=== PATIENT | male | born 1960 | race Caucasian/White ===

== ENCOUNTER 2020-04-10 09:51 | Inpatient (IN) | payer OTHER ==
[~2020-04-10] VITALS: Ht 180.3 cm; Wt 127.0 kg
[2020-04-10] MEDS ORDERED: SODIUM CHLORIDE 0.9% 1000ML 1,000 ML IV STA (10:04)
[2020-04-10] MEDS ORDERED: KETOROLAC TROMETHAMINE 30 MG/ML VIAL IV ONE (10:15)
[2020-04-10] MEDS ORDERED: MORPHINE SULFATE 2 MG/ML SYR 1ML IV ONE (10:15)
[2020-04-10] MEDS ORDERED: ONDANSETRON HCL INJ 2MG/ML 2ML 2 MG/ML VIAL IV ONE (10:15)
[2020-04-10 10:30] LABS: BASOPHILS # (AUTO) 0.1 (0.0-0.1); BASOPHILS % 0.5 % (0.0-1.0); EOSINOPHILS # (AUTO) 0.2 (0.0-0.4); EOSINOPHILS % 1.8 % (0.0-6.0); HEMOGLOBIN 15.6 g/dL (14.0-18.0); LYMPHOCYTES # (AUTO) 1.4 (1.0-3.2); LYMPHOCYTES % 11.8 % (18.0-39.1); MEAN CORPUSCULAR HEMOGLOBIN 30.7 pg (28-32); MEAN CORPUSCULAR HGB CONC 34.7 g/dL (31-35); MEAN CORPUSCULAR VOLUME 88.6 fL (81-99); MONOCYTES # (AUTO) 1.1 (0.2-0.8); MONOCYTES % 8.9 % (4.4-11.3); NEUTROPHILS # (AUTO) 9.3 (2.1-6.9); NEUTROPHILS % 76.5 % (38.7-80.0); PLATELET COUNT 197 x10e3/uL (140-360); RED BLOOD COUNT 5.08 x10e6/uL (4.3-5.7); RED CELL DISTRIBUTION WIDTH 12.3 % (11.7-14.4)
[2020-04-10 10:40] LABS: INR 0.88; PROTHROMBIN TIME 12.4 seconds (11.9-14.5)
[2020-04-10 10:43] LABS: COLOR,URINE YELLOW (YELLOW)
[2020-04-10 10:44] LABS: CLARITY,URINE SL CLOUDY (CLEAR); LEUKOCYTE ESTERASE ,URINE NEGATIVE (NEGATIVE); NITRITE,URINE NEGATIVE (NEGATIVE); PROTEIN,URINE DIPSTICK TRACE (NEGATIVE)
[2020-04-10 10:45] LABS: BILIRUBIN,URINE NEGATIVE (NEGATIVE); KETONES,URINE NEGATIVE (NEGATIVE); URINE UROBILINOGEN 0.2 mg/dL (0.2 - 1)
[2020-04-10 10:52] LABS: ALBUMIN 4.2 g/dL (3.5-5.0); ALBUMIN/GLOBULIN RATIO 1.2 (0.8-2.0); ANION GAP 18.1 mmol/L (8-16); CALCIUM 9.8 mg/dL (8.4-10.2); CREATININE, SERUM 1.5 mg/dL (0.72-1.25); POTASSIUM 3.1 mmol/L (3.5-5.1)
[2020-04-10 10:59] LABS: BACTERIA,URINE RARE /HPF; EPITHELIAL CELLS,URINE FEW /LPF; RBC,URINE 21-50 /HPF (0-5); WBC,URINE (MAN) 21-50 /HPF (0-5)
[2020-04-10] MEDS ORDERED: LAMOTRIGINE ER200 MG PO (11:37)
[2020-04-10] MEDS ORDERED: TRAZODONE HCL50 MG PO (11:37)
[2020-04-10] MEDS ORDERED: LOSARTAN HCTZ PO (11:37)
[2020-04-10] MEDS ORDERED: AMLODIPINE BESY10 MG PO (11:37)
[2020-04-10] MEDS ORDERED: FLOMAX0.4 MG PO (11:37)
[2020-04-10] MEDS ORDERED: COREG CR80 MG PO (11:38)
--- NOTE | 2020-04-10 12:00 | Emergency Department Note ---
History of Present Illnes History of Present Illness Chief Complaint: Abdominal Complaints History of Present Illness This is a 59 year old male 3 DAYS "DEALING WITH PASSING KIDNEY STONES". C/O OF RIGHT LOWER QUADRANT PAIN THAT HAS RADIATED FROM BACK. INTERMITTENT PAIN AND BLEEDING WITH URINATION HX OF KIDNEY STONES. Historian: Patient Arrival Mode: Car Additional Treatment TAR AND AMMONIA PUMP OPERATOR: TYLENOL #3 @630 AM Grill Cook Required: No Onset (how long ago): day(s) (3, WORSE THIS AM IN RLQ) Location: RIGHT FLANK/ABD Quality: PAIN Radiation: Reports abdomen Severity: severe Onset quality: gradual Timing of current episode: intermittent Progression: waxing and waning Chronicity: recurrent Context: Denies recent illness Relieving factors: none Exacerbating factors: none Associated symptoms: Reports denies other symptoms Treatments prior to arrival: none Past Medical/Family History Physician Review I have reviewed the patient's past medical and family history. Any updates have been documented here. Past Medical History Recent Fever: No Clinical Suspicion of Infectio: No New/Unexplained Change in Ment: No Past Medical History: Hypertension, Kidney Stones, Anxiety, Depression, Hyperlipedemia Past Surgical History: None Social History Smoking Cessation: Never Smoker Counseling Performed: No Alcohol Use: None Any Illegal Drug Use: No Other Any Pre-Existing Lines (PICC,: No Review of Systems Review of Systems Constitutional: Reports no symptoms EENTM: Reports no symptoms Cardiovascular: Reports no symptoms Respiratory: Reports no symptoms Gastrointestinal: Reports as per HPI Genitourinary: Reports as per HPI Musculoskeletal: Reports no symptoms Integumentary: Reports no symptoms Neurological: Reports no symptoms Psychological: Reports no symptoms Endocrine: Reports no symptoms Hematological/Lymphatic: Reports no symptoms Physical Exam Related Data Allergies: Coded Allergies: No Known Allergies (Unverified , 04/10/20) Triage Vital Signs Vital Signs Date Time Temp Pulse Resp B/P (MAP) Pulse Ox O2 Delivery O2 Flow Rate FiO2 04/10/20 09:54 98.1 63 18 141/81 97 Room Air Vital signs reviewed: Yes Physical Exam CONSTITUTIONAL Constitutional: Present well-developed, Present well-nourished HENT HENT: Present normocephalic, Present atraumatic, Present oropharynx clear/moist, Present nose normal HENT L/R: Present left ext ear normal, Present right ext ear normal EYES Eyes: Reports PERRL, Reports conjunctivae normal NECK Neck: Present ROM normal PULMONARY Pulmonary: Present effort normal, Present breath sounds normal CARDIOVASCULAR Cardiovascular: Present regular rhythm, Present heart sounds normal, Present capillary refill normal, Present normal rate GASTROINTESTINAL Abdominal: Present soft, Present nontender, Present bowel sounds normal GENITOURINARY Genitourinary: Present exam deferred SKIN Skin: Present warm, Present dry MUSCULOSKELETAL Musculoskeletal: Present ROM normal NEUROLOGICAL Neurological: Present alert, Present oriented x 3, Present no gross motor or sensory deficits PSYCHOLOGICAL Psychological: Present mood/affect normal, Present judgement normal Results Laboratory Result Diagram: 04/10/20 1000 04/10/20 1000 Laboratory Laboratory Tests Test 04/10/20 10:00 White Blood Count 12.14 x10e3/uL (4.8-10.8) Red Blood Count 5.08 x10e6/uL (4.3-5.7) Hemoglobin 15.6 g/dL (14.0-18.0) Hematocrit 45.0 % (38.2-49.6) Mean Corpuscular Volume 88.6 fL (81-99) Mean Corpuscular Hemoglobin 30.7 pg (28-32) Mean Corpuscular Hemoglobin Concent 34.7 g/dL (31-35) Red Cell Distribution Width 12.3 % (11.7-14.4) Platelet Count 197 x10e3/uL (140-360) Neutrophils (%) (Auto) 76.5 % (38.7-80.0) Lymphocytes (%) (Auto) 11.8 % (18.0-39.1) Monocytes (%) (Auto) 8.9 % (4.4-11.3) Eosinophils (%) (Auto) 1.8 % (0.0-6.0) Basophils (%) (Auto) 0.5 % (0.0-1.0) Neutrophils # (Auto) 9.3 (2.1-6.9) Lymphocytes # (Auto) 1.4 (1.0-3.2) Monocytes # (Auto) 1.1 (0.2-0.8) Eosinophils # (Auto) 0.2 (0.0-0.4) Basophils # (Auto) 0.1 (0.0-0.1) Absolute Immature Granulocyte (auto 0.06 x10e3/uL (0-0.1) Prothrombin Time 12.4 seconds (11.9-14.5) Prothromb Time International Ratio 0.88 Activated Partial Thromboplast Time 28.0 seconds (23.8-35.5) Urine Color Yellow (YELLOW) Urine Clarity Sl cloudy (CLEAR) Urine pH 6 (5 - 7) Urine Specific [place] 1.025 (1.010-1.025) Urine Protein Trace (NEGATIVE) Urine Glucose (UA) Negative (NEGATIVE) Urine Ketones Negative (NEGATIVE) Urine Blood Large (NEGATIVE) Urine Nitrite Negative (NEGATIVE) Urine Bilirubin Negative (NEGATIVE) Urine Urobilinogen 0.2 mg/dL (0.2 - 1) Urine Leukocyte Esterase Negative (NEGATIVE) Urine RBC 21-50 /HPF (0-5) Urine WBC 21-50 /HPF (0-5) Urine Epithelial Cells Few /LPF (NONE) Urine Bacteria Rare /HPF (NONE) Sodium Level 136 mmol/L (136-145) Potassium Level 3.1 mmol/L (3.5-5.1) Chloride Level 99 mmol/L (98-107) Carbon Dioxide Level 22 mmol/L (22-29) Anion Gap 18.1 mmol/L (8-16) Blood Urea Nitrogen 19 mg/dL (7-26) Creatinine 1.50 mg/dL (0.72-1.25) Estimat Glomerular Filtration Rate 48 ML/MIN (60-) BUN/Creatinine Ratio 13 (6-25) Glucose Level 130 mg/dL (74-118) Calcium Level 9.8 mg/dL (8.4-10.2) Total Bilirubin 0.8 mg/dL (0.2-1.2) Aspartate Amino Transf (AST/SGOT) 20 IU/L (5-34) Alanine Aminotransferase (ALT/SGPT) 25 IU/L (0-55) Alkaline Phosphatase 65 IU/L (40-150) Total Protein 7.6 g/dL (6.5-8.1) Albumin 4.2 g/dL (3.5-5.0) Globulin 3.4 g/dL (2.3-3.5) Albumin/Globulin Ratio 1.2 (0.8-2.0) Lab results reviewed: Yes Imaging Imaging results reviewed: Yes Assessment & Plan Medical Decision Making MDM FLANK/ABD PAIN - CBC, CHEM, UA/CX, CT ABD/PELVIS - R/O URETEROLITHIASIS, UTI/PYELONEPHRITIS, APPENDICITIS, RENAL INSUFF Reassessment Reassessment OBSTRUCTING STONE 8MM MID RIGHT URETER AND 6MM AT RIGHT UVJ - ADMIT TO DR AYALA, CONSULT Assessment & Plan Final Impression: (1) Ureterolithiasis (2) Urinary tract obstruction by kidney stone (3) UTI (urinary tract infection) Depart Disposition: ADMITTED Last Vital Signs Date Time Temp Pulse Resp B/P (MAP) Pulse Ox O2 Delivery O2 Flow Rate FiO2 04/10/20 10:30 61 18 125/75 97 Room Air 04/10/20 09:54 98.1 Home Meds Reported Medications Carvedilol Phosphate (COREG CR) 80 Mg Cpmp.24hr, 80 MG PO DAILY 04/10/20 Amlodipine Besylate (AMLODIPINE BESYLATE) 10 Mg Tablet, 10 MG PO DAILY, #30 TAB 04/10/20 Tamsulosin Hcl* (FLOMAX*) 0.4 Mg Cap, 0.4 MG PO DAILY, #30 CAP 04/10/20 Lamotrigine (Lamotrigine ER) 200 Mg Tab.er.24, 200 MG PO DAILY 04/10/20 [losartan hctz] No Conflict Check, 100 MG PO DAILY 04/10/20 Trazodone Hcl (TRAZODONE HCL) 50 Mg Tablet, 100 MG PO DAILY, #30 TAB 04/10/20 Medications in the ED Morphine Sulfate 4 mg ONCE ONCE IV Last administered on 04/10/20at 10:24; Admin Dose 4 MG; Start 04/10/20 at 10:15; Stop 04/10/20 at 10:16; Status DC Ondansetron HCl 4 mg ONCE ONCE IV Last administered on 04/10/20at 10:24; Admin Dose 4 MG; Start 04/10/20 at 10:15; Stop 04/10/20 at 10:16; Status DC Ketorolac Tromethamine 30 mg ONCE ONCE IV Last administered on 04/10/20at 10:17; Admin Dose 30 MG; Start 04/10/20 at 10:15; Stop 04/10/20 at 10:16; Status DC Sodium Chloride 1,000 ml @ 0 mls/hr Q0M STAT IV Last administered on 04/10/20at 10:17; Admin Dose 1,000 MLS/HR; Start 04/10/20 at 10:04; Stop 04/10/20 at 10:07; Status DC ALONSO FARIA MD Apr 10, 2020 12:00
--- NOTE | 2020-04-10 12:36 | Diagnostic Imaging Report ---
EXAM: CT Abdomen and Pelvis WITHOUT contrast INDICATION: Right lower quadrant abdominal pain. COMPARISON: TECHNIQUE: Abdomen and pelvis were scanned utilizing a multidetector helical scanner from the lung base to the pubic symphysis without administration of IV contrast. Absence of intravenous contrast decreases sensitivity for detection of focal lesions and vascular pathology. Coronal and sagittal reformations were obtained. Routine protocol was performed. IV CONTRAST: None ORAL CONTRAST: None COMPLICATIONS: None RADIATION DOSE: Total DLP: 980.81 mGy*cm Estimated effective dose: (DLP x 0.015 x size factor) mSv CTDIvol has been reviewed. It is below the limits set by the Radiation Protocol Committee (RPC). Dose modulation, iterative reconstruction, and/or weight based adjustment of the mA/kV was utilized to reduce the radiation dose to as low as reasonably achievable. FINDINGS: LINES and TUBES: None. LOWER THORAX: There is bibasilar atelectasis. The base of the heart demonstrates atherosclerotic calcification of coronary vessels and left atrial enlargement measuring up to 5.6 cm. No pericardial effusion. HEPATOBILIARY: No focal hepatic lesions. No biliary ductal dilation. GALLBLADDER: No radio-opaque stones or sludge. No wall thickening. SPLEEN: No splenomegaly. PANCREAS: No focal masses or ductal dilatation. ADRENALS: There is nodular thickening of the bilateral adrenal glands. KIDNEYS/URETERS: There is a 8 mm stone in the mid right ureter with proximal hydroureteronephrosis. There is an exophytic cyst and nonobstructive 6 mm stone in the inferior pole of the right kidney. There are multiple nonobstructing stones in the left kidney the largest measuring up to 1.5 cm in the inferior pole. No evidence of left hydroureteronephrosis. GI TRACT: There are scattered colonic diverticulosis or evidence of active inflammation. No abnormal distention, wall thickening, or evidence of bowel obstruction. Appendix is normal. PELVIC ORGANS/BLADDER: There is a 6 mm stone in the lumen of the urinary bladder at the distal ureterovesical junction. The urinary bladder is decompressed limiting optimal assessment. The prostate gland is enlarged measuring approximately 6.4 x 6.0 cm. LYMPH NODES: No lymphadenopathy. VESSELS: The abdominal aorta and its major abdomen and pelvic branches have normal caliber with mild atherosclerotic calcification. PERITONEUM / RETROPERITONEUM: There is an indeterminate well-circumscribed mass which extends inferiorly from the monae hepatis, aborting the head of the pancreas and second portion of the duodenum. It measures approximately 5.5 x 6.4 x 8.1 cm (AP x transverse x craniocaudal) and causes mass effect on the adjacent structures including the right renal vessels and inferior vena cava. BONES: Multilevel degenerative changes of the spine with no suspicious osteolytic or osteoblastic lesions. SOFT TISSUES: Unremarkable. IMPRESSION: 1. An 8 mm obstructive stone in the mid right ureter with proximal hydroureteronephrosis. Nonobstructive 6 mm stone in the inferior pole of the right kidney. 2. Multiple nonobstructing stones in the left kidney, the largest measuring up to 1.5 cm in the inferior pole. 3. A 6mm stone in the lumen of the urinary bladder at the distal right ureterovesical junction, likely passing stone. 4. Indeterminate well-circumscribed mass which extends inferiorly from the monae hepatis, bordered by the head of the pancreas, second portion of the duodenum, renal vessels and inferior vena cava. It is difficult to determine where this mass originates from due to lack of contrast. Recommend repeat CT of the abdomen and pelvis with intravenous and oral contrast. The oral contrast should been early phase to adequately opacify the proximal duodenum. 5. Scattered colonic diverticulosis without evidence of active inflammation. 6. Left atrial enlargement with atherosclerotic calcification of the coronary vessels. 7. Nodular thickening of the bilateral adrenal glands which can be seen with adrenal hyperplasia. Signed by: Barrera Abreu MD on 04/10/2020 12:33 PM
[2020-04-10] MEDS ORDERED: ONDANSETRON HCL INJ 2MG/ML 2ML 2 MG/ML VIAL IV PRN (13:00)
[2020-04-10] MEDS: CEFTRIAXONE SOD 1 GM/NS 50 ML 50 ML IV SCH (13:07)
[2020-04-10] MEDS: SODIUM CHLORIDE 0.9% 1000ML 1,000 ML IV SCH (13:07)
--- OUTSIDE RECORDS SUMMARY | 2020-04-10 13:13 | XMS REPORT | Continuity of Care Document ---
Author Author [facility] t Organization [facility] Address [address] [place] [address] [address]. [address] [place] [address] Phone Unavailable Care Team Providers Care Embedded Systems Engineer Name Role Phone Abilio FARIA Attphys Unavailable Problems This patient has no known problems. Allergies, Adverse Reactions, Alerts This patient has no known allergies or adverse reactions. Medications This patient has no known medications. Procedures This patient has no known procedures. Results Test Description Test Time Test Comments Results Result Comments Source CT ABDOMEN/PELVIS WO 2020-04-10 11:45:00 [facility] [address] [place], [place] [address] Patient Name: ARCADIO ROYAL MR #: [id number] : 1960 Age/Sex: 59/M Req #: [id number] Adm Physician: Ordered by: ALONSO FARIA MD Report #: [id number] Location: ER Room/Bed: Procedure: [id number] CT/CT ABDOMEN/PELVIS WO Exam Date: 04/10/20 Exam Time: 1030 REPORT STATUS: Signed EXAM: CT Abdomen and Pelvis WITHOUT contrast INDICATION: Right lower quadrant abdominal pain. COMPARISON: TECHNIQUE: Abdomen and pelvis were scanned utilizing a multidetector helical scanner from the lung base to the pubic symphysis without administration of IV contrast. Absence of intravenous contrast decreases sensitivity for detection of focal lesions and vascular pathology. Coronal and sagittal reformations were obtained. Routine protocol was performed. IV CONTRAST: None ORAL CONTRAST: None COMPLICATIONS: None RADIATION DOSE: Total DLP: 980.81 mGy*cm Estimated effective dose: (DLP x 0.015 x size factor) mSv CTDIvol has been reviewed. It is below the limits set by the Radiation Protocol Committee (RPC). Dose modulation, iterative reconstruction, and/or weight based adjustment of the mA/kV was utilized to reduce the radiation dose to as low as reasonably achievable. FINDINGS: LINES and TUBES: None. LOWER THORAX: There is bibasilar atelectasis. The base of the heart demonstrates atherosclerotic calcification of coronary vessels and left atrial enlargement measuring up to 5.6 cm. No pericardial effusion. HEPATOBILIARY: No focal hepatic lesions. No biliary ductal dilation. GALLBLADDER: No radio-opaque stones or sludge. No wall thickening. SPLEEN: No splenomegaly. PANCREAS: No focal masses or ductal dilatation. ADRENALS: There is nodular thickening of the bilateral adrenal glands. KIDNEYS/URETERS: There is a 8 mm stone in the mid right ureter with proximal hydroureteronephrosis. There is an exophytic cyst and n onobstructive 6 mm stone in the inferior pole of the right kidney. There are multiple nonobstructing stones in the left kidney the largest measuring up to 1.5 cm in the inferior pole. No evidence of left hydroureteronephrosis. GI TRACT: There are scattered colonic diverticulosis or evidence of active inflammation. No abnormal distention, wall thickening, or evidence of bowel obstruction. Appendix is normal. PELVIC ORGANS/BLADDER: There is a 6 mm stone in the lumen of the urinary bladder at the distal ureterovesical junction. The urinary bladder is decompressed limiting optimal assessment. The prostate gland is enlarged measuring approximately 6.4 x 6.0 cm. LYMPH NODES: No lymphadenopathy. VESSELS: The abdominal aorta and its major abdomen and pelvic branches have normal caliber with mild atherosclerotic calcification. PERITONEUM / RETROPERITONEUM: There is an indeterminate well-circumscribed mass which extends inferiorly from the monae hepatis, aborting the head of the pancreas and second portion of the duodenum. It measures approximately 5.5 x 6.4 x 8.1 cm (AP x transverse x craniocaudal) and causes mass effect on the adjacent structures including the right renal vessels and inferior vena cava. BONES: Multilevel degenerative changes of the spine with no suspicious osteolytic or osteoblastic lesions. SOFT TISSUES: Unremarkable. IMPRESSION: 1. An 8 mm obstructive stone in the mid right ureter with proximal hydroureteronephrosis. Nonobstructive 6 mm stone in the inferior pole of the right kidney. 2. Multiple nonobstructing stones in the left kidney, the largest measuring up to 1.5 cm in the inferior pole. 3. A 6mm stone in the lumen of the urinary bladder at the distal right ureterovesical junction, likely passing stone. 4. Indeterminate well-circumscribed mass which extends inferiorly from the monae hepatis, bordered by the head of the pancreas, second portion of the duo denum, renal vessels and inferior vena cava. It is difficult to determine where this mass originates from due to lack of contrast. Recommend repeat CT of the abdomen and pelvis with intravenous and oral contrast. The oral contrast should been early phase to adequately opacify the proximal duodenum. 5. Scattered colonic diverticulosis without evidence of active inflammation. 6. Left atrial enlargement with atherosclerotic calcification of the coronary vessels. 7. Nodular thickening of the bilateral adrenal glands which can be seen with adrenal hyperplasia. Signed by: Bijal Pretty MD on 04/10/2020 12:33 PM Dictated By: BIJAL PRETTY MD [id number] Transcribed By: YONI on 04/10/20 1233 COPY TO: ALONSO FARIA MD
[2020-04-10] MEDS ORDERED: POTASSIUM CHLORIDE 20 MEQ TAB CR PO STA (13:34)
[2020-04-10] MEDS: MORPHINE SULFATE 2 MG/ML SYR 1ML IV PRN ×2 (13:46→18:25)
--- NOTE | 2020-04-10 13:46 | NUR ---
DR. AYALA [employer] AT BEDSIDE EVALUATING PATIENT
--- NOTE | 2020-04-10 14:20 | NUR ---
Patient arrived to the floor from the ER. He is awake alert and oriented x 3. He was oriented to the room, he denies needing anything at this time, call light in reach
[2020-04-10 14:22] VITALS: BP 138/79
[2020-04-10 15:30] VITALS: BP 138/79
--- NOTE | 2020-04-10 16:16 | Consultation ---
DATE OF CONSULTATION: 04/10/2020 Urologic Consultation Consultation is called by Dr. Elvin Ocampo in the emergency room. CHIEF COMPLAINT AND REASON FOR CONSULTATION: Kidney stones. HISTORY OF PRESENT ILLNESS: Mr. Valero is a very pleasant 59-year-old male, self employee, who has been passing kidney stones since the age of 21. He now presents with acute sharp severe right-sided flank pain. Denied dysuria. Denied gross hematuria. PAST MEDICAL HISTORY: Hypertension, kidney stones, anxiety, depression, hyperlipidemia, and obesity. MEDICATIONS: Please see MAR. ALLERGIES: NKDA. SOCIAL HISTORY: Denied smoking or drinking. FAMILY HISTORY: Denied urologic stones or malignancies. REVIEW OF SYSTEMS: Noncontributory other than problems mentioned above for 12-organ systems. PHYSICAL EXAMINATION: GENERAL: Middle-aged male, in no acute distress. VITAL SIGNS: Currently temperature 97.8, pulse 65, respirations 20, and blood pressure 138/79. HEENT: Sclerae anicteric. NECK: Supple. BACK: Without costovertebral angle tenderness currently. ABDOMEN: Soft. It is obese. It is nontender. It is nondistended. There is no palpable mass, no palpable hernias, no palpable adenopathy. : Normal male external genitalia. EXTREMITIES: No edema. NEURO: Moves all 4 extremities. PSYCH: Alert and mood appropriate. SKIN: Intact. Normal color. PERTINENT LABORATORY DATA: Hemoglobin 15, hematocrit 45, platelet count 197,000, and white blood cell count 12,000. Sodium 136, potassium 3.1, chloride 99, bicarb 32, BUN 19, creatinine 1.5, and glucose 130. Urinalysis 21 to 50 whites, 21 to 50 reds, negative nitrites, trace protein. A CT scan revealing per the impression 8 mm right mid ureteral obstructive stone, right hydronephrosis, 6 mm right lower pole renal stone, 6 mm right UVJ stone, multiple stones in the left kidney, largest 1.5 cm. Indeterminate well-circumscribed mass in the pancreas. Nodular thickening of bilateral adrenal glands. IMPRESSION: 1. Ureteral calculi. 2. Renal calculi. 3. Hydronephrosis. 4. Microscopic hematuria. 5. Urinary tract infection. 6. Obesity. 7. Hypertension. 8. Bilateral adrenal thickening consistent with adrenal hyperplasia. 9. Pancreatic mass. 10. Acute renal failure. PLAN: Aggressively hydrated the patient, has been begun on broad-spectrum antibiotics. We would employ a brief trial of passage. Should this fail or white count normalize, we will consider stenting and ureteroscopy depending upon how the stones removed. This was obtained per the patient about the pancreatic mass seen on CAT scan. We will follow. We will defer to the primary service. Defer kirsten and lytes to the primary service. Thank you for allowing me to participate in the care of your patient. We will be happy to follow along with you. Tre Lorenz MD ES/MODL /[id number] cc: MD Fidel Triplett MD
[2020-04-10 17:21] VITALS: BP 131/73
[2020-04-10] MEDS ORDERED: ACETAMINOPHEN 325 MG TAB PO PRN (19:45)
[2020-04-10 21:00] VITALS: BP 131/73
[2020-04-10 21:10] VITALS: BP 132/64
--- NOTE | 2020-04-10 21:21 | NUR ---
Blood specimen sent to lab for BMP analysis
[2020-04-10] MEDS: TAMSULOSIN HCL 0.4 MG CAP PO SCH (21:35)
[2020-04-10] MEDS: ATORVASTATIN 20 MG TAB PO SCH (21:35)
[2020-04-10 21:46] LABS: ANION GAP 15.9 mmol/L (8-16); CALCIUM 9.2 mg/dL (8.4-10.2); CREATININE, SERUM 1.56 mg/dL (0.72-1.25)
[2020-04-10 22:01] LABS: POTASSIUM 2.9 mmol/L (3.5-5.1)
--- NOTE | 2020-04-10 22:20 | NUR ---
Dr. Barrios notified of low potassium level of 2.9. New order received for Potassium 60 MeQ PO x 1
[2020-04-10] MEDS ORDERED: POTASSIUM CHLORIDE 20 MEQ TAB CR PO ONE (23:00)
[2020-04-10] MEDS: TRAZODONE HCL 50 MG TAB PO SCH (23:08)
--- NOTE | 2020-04-10 23:08 | History and Physical ---
PRIMARY CARE PHYSICIAN: Dr. Reyna Beck at [facility] CHIEF COMPLAINT: Right flank pain radiating to the right pelvic area. HISTORY OF PRESENT ILLNESS: This is a 59-year-old male with past medical history of hypertension, high cholesterol, and nonobstructive kidney stones in the past, who presented to the ER with complaints of right flank pain radiating to the right pelvic area. He reports the pain started 3 or 4 days ago on and off, but continue to worsen. He denies any dysuria, hematuria, or stones or particles in the urine. He denies any fever, chills, chest pain, or shortness of breath. He reports severe pain causing him to have nausea and vomiting associated with it. He reports has had kidney stones in the past, but has not had any intervention done in the past. The PCP had done some imaging in the beginning of the year, which showed some stones and was planning for further intervention, but due to the pandemic was not able to follow through. PAST MEDICAL HISTORY: 1. Hypertension. 2. High cholesterol. 3. BPH. 4. Mood disorder. PAST SURGICAL HISTORY: Reports eye reconstruction surgery to the left side due to an accident. FAMILY MEDICAL HISTORY: He reports mother of cancer and father has heart disease. SOCIAL HISTORY: He denies any tobacco, alcohol, or illicit drug use, currently employed. ALLERGIES: NO KNOWN DRUG ALLERGIES. REVIEW OF SYSTEMS: Twelve-system reviewed and negative except as reported in HPI. PHYSICAL EXAMINATION: VITAL SIGNS: Temperature 98.3, pulse is 78, respirations 18, blood pressure 120/77, and pulse ox 98% on room air. GENERAL: In no acute distress. HEENT: Normocephalic, atraumatic. NECK: Supple. LUNGS: Clear to auscultation. CARDIOVASCULAR: Regular rate and rhythm. GI: Soft and nontender. NEUROLOGIC: Alert, awake, and oriented x3. MUSCULOSKELETAL: Moves all extremities. SKIN: Dry. PSYCH: He is calm. : Flank pain, right radiating to the right side pelvic pain. LABORATORY DATA: WBCs 12.14, hemoglobin 15.6, hematocrit 45.0, and platelets 197. Sodium 136, potassium 3.11, BUN 19, creatinine 1.50, and estimated GFR is 48. PT 12.4, INR 0.88, and APTT 28.0. Urine, slightly cloudy with trace protein, negative leukocyte esterase with 21-50 K wbc's and rare bacteria. COVID PCR is pending. Urine culture is pending. IMAGING DATA: CT of the abdomen and pelvis shows an 8 mm obstructive stone in the mid right ureter and proximal hydroureteronephrosis with multiple nonobstructing stones in the left kidney and as well as the right inferior pole; a 6 mm in the lumen of the urinary bladder, likely passing stone; indeterminate, well-circumscribed mass which extends inferiorly from the monae hepatis bordered by the head of the pancreas, second portion of the duodenum, renal vessels, and inferior vena cava and recommended repeat CT of the abdomen and pelvis with IV contrast. Nodular thickening of the bilateral adrenal glands also seen. IMPRESSION: 1. Obstructive kidney stone with hydroureteronephrosis. Started on Rocephin empirically, urine culture pending, pain management as needed, and Urology consulted. 2. Acute kidney injury. He denies history of kidney disease. Creatinine is 1.5. We will continue with IV fluids and repeat labs in a.m. 3. Hypertension. We will resume Norvasc and losartan. 4. Hypokalemia, replaced. 5. Questionable mass on CT. We will repeat CT of the abdomen and pelvis with IV contrast for further evaluation. 6. High cholesterol. We will resume statin. 7. Benign prostatic hypertrophy. We will resume Flomax. 8. GI and DVT prophylaxis. We will hold chemical anticoagulation due to possible urology workup. Dictated by ADAM Lorenzo Fidel Barrios MD MY/MODL /[id number] Seen and examined. Agree with the findings and plan documented by ADAM Jenkins. DEXTER
[2020-04-11] VITALS (7 sets, daily range): BP systolic 104–139; BP diastolic 67–99
[2020-04-11] MEDS: CEFTRIAXONE SOD 1 GM/NS 50 ML 50 ML IV SCH ×2 (00:34→14:23)
[2020-04-11] MEDS: SODIUM CHLORIDE 0.9% 1000ML 1,000 ML IV SCH ×2 (02:20→14:24)
--- NOTE | 2020-04-11 07:00 | NUR ---
Patient resting comfortably. AAO x 3. No acute distress noted. Shift report given to oncoming nurse regarding patient's status.
[2020-04-11 07:57] LABS: BASOPHILS # (AUTO) 0.1 (0.0-0.1); BASOPHILS % 0.6 % (0.0-1.0); EOSINOPHILS # (AUTO) 0.3 (0.0-0.4); EOSINOPHILS % 3.1 % (0.0-6.0); HEMATOCRIT 39.4 % (38.2-49.6); HEMOGLOBIN 13.3 g/dL (14.0-18.0); LYMPHOCYTES # (AUTO) 1.8 (1.0-3.2); LYMPHOCYTES % 21.4 % (18.0-39.1); MEAN CORPUSCULAR HEMOGLOBIN 29.8 pg (28-32); MEAN CORPUSCULAR HGB CONC 33.8 g/dL (31-35); MEAN CORPUSCULAR VOLUME 88.1 fL (81-99); MONOCYTES % 11.5 % (4.4-11.3); NEUTROPHILS # (AUTO) 5.2 (2.1-6.9); NEUTROPHILS % 62.8 % (38.7-80.0); PLATELET COUNT 175 x10e3/uL (140-360); RED BLOOD COUNT 4.47 x10e6/uL (4.3-5.7); RED CELL DISTRIBUTION WIDTH 12.4 % (11.7-14.4)
[2020-04-11 08:19] LABS: ALANINE AMINOTRANSFERASE 19 IU/L (0-55); ALBUMIN 3.5 g/dL (3.5-5.0); ALBUMIN/GLOBULIN RATIO 1.2 (0.8-2.0); ALKALINE PHOSPHATASE 57 IU/L (40-150); BLOOD UREA NITROGEN 15 mg/dL (7-26); BUN/CREATININE RATIO 13 (6-25); CARBON DIOXIDE 23 mmol/L (22-29); CHLORIDE 105 mmol/L (98-107); CREATININE, SERUM 1.17 mg/dL (0.72-1.25); EST GLOMERULAR FILTRATION RATE > 60 ML/MIN (60-); GLUCOSE 107 mg/dL (74-118); SODIUM 139 mmol/L (136-145)
[2020-04-11] MEDS ORDERED: TAMSULOSIN HCL 0.4 MG CAP PO SCH (09:00)
[2020-04-11] MEDS ORDERED: LAMOTRIGINE 200 MG PO SCH (09:00)
--- NOTE | 2020-04-11 09:16 | Diagnostic Imaging Report ---
EXAM: Abdomen Radiograph 1 View(s) INDICATION: Kidney stone. COMPARISON: CT of the abdomen/pelvis on 04/10/2020. FINDINGS: Redemonstration of multiple stones in the left kidney, the largest measuring up to 1.5 cm. Smaller stones also seen in the right kidney, the largest inferior pole measuring up to 5 mm. Normal bowel gas pattern. No evidence of pneumoperitoneum. The bones are within normal limits for age. The imaged lower lungs are clear. IMPRESSION: 1. Multiple bilateral renal stones, the largest measuring up to 1.5 cm in the left kidney. These are better characterized on comparison CT of the abdomen/pelvis. 2. Nonobstructive bowel gas pattern. Signed by: Barrera Abreu MD on 04/11/2020 9:13 AM
[2020-04-11] MEDS: AMLODIPINE BESYLATE 10 MG TAB PO SCH (09:46)
[2020-04-11] MEDS ORDERED: DIATRIZOATE MEGL/DIATRIZOA SOD 30 ML BTL PO ONE (11:47)
[2020-04-11] MEDS ORDERED: POTASSIUM CHLORIDE 10MEQ EA PO ONE (13:30)
--- NOTE | 2020-04-11 16:45 | Diagnostic Imaging Report ---
EXAM: CT Abdomen and Pelvis WITH contrast INDICATION: Abdominal pain concerning for mass within the liver, pancreas or duodenum. COMPARISON: CT of the abdomen and pelvis on 04/10/2020. TECHNIQUE: Abdomen and pelvis were scanned utilizing a multidetector helical scanner from the lung base to the pubic symphysis after administration of IV contrast. Coronal and sagittal reformations were obtained. Routine protocol was performed. Scan was performed when during portal venous phase. IV CONTRAST: 100 mL of Isovue 370 ORAL CONTRAST: None COMPLICATIONS: None RADIATION DOSE: Total DLP: 989.68 mGy*cm Estimated effective dose: (DLP x 0.015 x size factor) mSv CTDIvol has been reviewed. It is below the limits set by the Radiation Protocol Committee (RPC). Dose modulation, iterative reconstruction, and/or weight based adjustment of the mA/kV was utilized to reduce the radiation dose to as low as reasonably achievable. FINDINGS: LINES and TUBES: None. LOWER THORAX: There is bibasilar atelectasis. The base of the heart demonstrates atherosclerotic calcification of coronary vessels and left atrial enlargement measuring up to 5.6 cm. No pericardial effusion. HEPATOBILIARY: Diffusely hypodense, compatible with hepatic steatosis. No focal hepatic lesions. No biliary ductal dilation. GALLBLADDER: No radio-opaque stones or sludge. No wall thickening. SPLEEN: No splenomegaly. PANCREAS: No focal masses or ductal dilatation. ADRENALS: Redemonstration of nodular thickening of the bilateral adrenal glands. KIDNEYS/URETERS: Redemonstration of a 8 mm stone in the mid right ureter with proximal hydroureteronephrosis, unchanged. Exophytic cyst and nonobstructive 6 mm stone in the inferior pole of the right kidney is again seen. There is a new 7 mm stone in the left ureterovesicular junction. No significant left hydronephrosis. Redemonstration of multiple nonobstructing stones in the left kidney the largest measuring up to 1.5 cm in the inferior pole. GI TRACT: There are scattered colonic diverticulosis or evidence of active inflammation. No abnormal distention, wall thickening, or evidence of bowel obstruction. Appendix is normal. PELVIC ORGANS/BLADDER: Previously described 6 mm stone in the right ureterovesicular junction is no longer visualized. Normal urinary bladder wall. The prostate gland is enlarged measuring approximately 6.4 x 6.0 cm. LYMPH NODES: No lymphadenopathy. VESSELS: The abdominal aorta and its major abdomen and pelvic branches have normal enhancement and caliber with mild atherosclerotic calcification. PERITONEUM / RETROPERITONEUM: Redemonstration of indeterminate well-circumscribed 5.5 x 6.4 x 8.1 cm, enhancing mass which extends inferiorly from the monae hepatis, abutting the head of the pancreas , second portion of the duodenum and inferior vena cava. It is a solitary mass and does not originate from any of the adjacent structures. BONES: Multilevel degenerative changes of the spine with no suspicious osteolytic or osteoblastic lesions. SOFT TISSUES: Unremarkable. IMPRESSION: 1. Well-circumscribed 5.5 x 6.4 x 8.1 cm, enhancing mass which abuts the head of the pancreas, second portion of the duodenum and inferior vena cava. It is a solitary mass and does not originate from any of the adjacent structures. Differential diagnosis includes an enlarged lymph node or soft tissue sarcoma. However, patient will require nonemergent complete metastatic workup and probable direct tissue sampling for more definitive diagnosis. 2. New 7 mm stone in the left ureterovesicular junction. No significant left hydroureteronephrosis. It is difficult to determine whether this is the same stone previously seen in the right ureterovesicular junction or a new passing stone. 3. No interval change in 8 mm obstructive stone in the mid right ureter with proximal hydroureteronephrosis. Nonobstructive 6 mm stone in the inferior pole of the right kidney. 4. Multiple nonobstructing stones in the left kidney, the largest measuring up to 1.5 cm in the inferior pole. 5. Scattered colonic diverticulosis without evidence of active inflammation. 6. Left atrial enlargement with atherosclerotic calcification of the coronary vessels. 7. Nodular thickening of the bilateral adrenal glands which can be seen with adrenal hyperplasia. Signed by: Barrera Abreu MD on 04/11/2020 4:42 PM
--- NOTE | 2020-04-11 17:55 | NUR ---
CT abdomen/pelvis results were called to Dr. Lorenz. No new orders at this time.
[2020-04-11] MEDS ORDERED: SODIUM CHLORIDE 0.9% 50ML 50 ML ONE (19:20)
[2020-04-11] MEDS ORDERED: IOPAMIDOL 370 MG/ML 200 ML INFUS..BTL INJ ONE (19:20)
--- NOTE | 2020-04-11 19:28 | NUR ---
Patient received sitting up in bed. AAO x 4. Patient has no complaints of pain. Respirations even and non-labored. Safety measures in place. Patient instructed to call for assistance when needed. Call light within reach.
--- NOTE | 2020-04-11 21:00 | Progress Note ---
DATE: 04/11/2020 CHIEF COMPLAINT: Right flank pain radiating to right pelvis. SUBJECTIVE: The patient reports has some soreness in the right lower quadrant area, but has not required any pain medication since yesterday. He denies any fever, chills, nausea, or vomiting. No visible passing of stones or hematuria. OBJECTIVE: VITAL SIGNS: Temperature 98.1, pulse is 58, respirations 18, blood pressure 127/77, and pulse ox is 97% on room air. GENERAL: In no acute distress. HEENT: Normocephalic, atraumatic. NECK: Supple. LUNGS: Clear to auscultation. CARDIOVASCULAR: Regular rate and rhythm. GI: Soft, nontender. Obese. GI: Right lower quadrant tenderness. NEUROLOGIC: Alert, awake, and oriented x3. MUSCULOSKELETAL: Moves all extremities. No edema skin is dry. PSYCH: Calm. LABORATORY DATA: WBCs 8.28, hemoglobin 13.3, hematocrit 39.4, and platelets 175. Sodium 139, potassium 3.0, BUN is 15, creatinine 1.17, and estimated GFR is greater than 60. IMAGING DATA: Abdominal x-ray showed multiple bilateral renal stones, the largest measuring up to 1.5 cm in the left kidney disease, these are better characterized on comparison of CT of the abdomen and pelvis, nonobstructive bowel gas. CT of the abdomen and pelvis with IV contrast showed well-circumscribed 5.5 x 6.4 x 8.1 cm enhancing mass, which abuts the head of the pancreas, second portion of the duodenum, and inferior vena cava. It is a solitary mass. Differential diagnosis includes enlarged lymph node or soft tissue sarcoma, but we will require nonemergent complete metastatic workup and probable direct tissue sampling for definitive diagnoses. There is a new 7 mm stone in the left ureterovesical junction, no significant left hydroureteronephrosis and 8 mm obstructive stone in the mid right ureter with proximal hydroureteronephrosis and obstructive 6 mm stone in the left and the inferior pole of the right kidney. IMPRESSION: 1. Obstructive right kidney stone with hydroureteronephrosis. Urine culture negative so far, but we will continue with empiric Rocephin. Pain is resolved. Urology has been consulted. KUB with nonobstructive stones, but CT still reports an obstructive stone in the right small kidney. We will defer to Urology for further intervention. 2. Acute kidney injury. Resolved with IV fluid hydration. 3. Hypertension. Continue Norvasc and losartan. 4. Hypokalemia. Replaced. 5. High cholesterol. We will resume on statin. 6. Incidental finding of pancreatic mass on CT. We will require metastatic workup outpatient with Diana. We will discuss further with the patient. 7. BPH. We will resume Flomax. 8. GI and DVT prophylaxis. We will hold chemical anticoagulation due to possible urology workup. Dictated by ADAM Lorenzo Dianeching Rene Barrios MD MY/MODL /[id number]
[2020-04-11] MEDS: TRAZODONE HCL 50 MG TAB PO SCH (21:50)
[2020-04-11] MEDS: TAMSULOSIN HCL 0.4 MG CAP PO SCH (21:50)
[2020-04-11] MEDS: ATORVASTATIN 20 MG TAB PO SCH (21:50)
[2020-04-12] VITALS (8 sets, daily range): BP systolic 125–150; BP diastolic 77–88
[2020-04-12] MEDS: CEFTRIAXONE SOD 1 GM/NS 50 ML 50 ML IV SCH ×2 (00:20→13:09)
[2020-04-12 06:56] LABS: ANION GAP 15.1 mmol/L (8-16); BLOOD UREA NITROGEN 11 mg/dL (7-26); BUN/CREATININE RATIO 13 (6-25); CARBON DIOXIDE 23 mmol/L (22-29); CHLORIDE 105 mmol/L (98-107); CREATININE, SERUM 0.88 mg/dL (0.72-1.25); EST GLOMERULAR FILTRATION RATE > 60 ML/MIN (60-); GLUCOSE 111 mg/dL (74-118); POTASSIUM 3.1 mmol/L (3.5-5.1); SODIUM 140 mmol/L (136-145)
--- NOTE | 2020-04-12 07:00 | NUR ---
BEDSIDE SHIFT REPORT RECEIVED FROM THE PHARMACY INTAKE TECHNICIAN RN. EDUCATED PT ABOUT FALL PRECAUTIONS. PT VERBALIZED UNDERSTANDING. BED IS LOW AND LOCKED. SIDE RAILS X2. CALL LIGHT WITH IN EASY REACH. ALL SAFETY MEASURES IN PLACE. PT DENIES NEEDS AT THIS TIME.
--- NOTE | 2020-04-12 07:20 | NUR ---
PAGED DR. AYALA AND REPORTED K LEVEL 3.1
[2020-04-12] MEDS ORDERED: POTASSIUM CHLORIDE 10MEQ EA PO ONE ×2 (08:00→08:50)
[2020-04-12] MEDS: AMLODIPINE BESYLATE 10 MG TAB PO SCH (08:26)
[2020-04-12] MEDS: SODIUM CHLORIDE 0.9% 1000ML 1,000 ML IV SCH ×2 (08:39→18:06)
[2020-04-12] MEDS: MORPHINE SULFATE 2 MG/ML SYR 1ML IV PRN (16:27)
--- NOTE | 2020-04-12 19:08 | NUR ---
BEDSIDE SHIFT REPORT GIVEN TO THE ANALYTICAL LEAD RN. PT DENIED FURTHER NEEDS.
--- NOTE | 2020-04-12 19:26 | NUR ---
Patient received sitting up in bed. AAO x 4. No acute distress noted. Fall precautions implemented. Call light within reach.
--- NOTE | 2020-04-12 20:20 | Progress Note ---
DATE: 04/12/2020 CHIEF COMPLAINT: Right flank pain radiating to the right pelvic. SUBJECTIVE: The patient remains stable with no acute distress. Reports mild tenderness and occasional sharp pains in the right lower quadrant area, otherwise is stable. Denies any fever, chills, nausea, or vomiting. PHYSICAL EXAMINATION: VITAL SIGNS: Temperature 97.9, pulse is 57, respirations 20, blood pressure 150/80, and pulse ox is 97% on room air. GENERAL: No acute distress. HEENT: Normocephalic and atraumatic. NECK: Supple. LUNGS: Clear to auscultation. CARDIOVASCULAR: Regular rate and rhythm. GI: Soft and right lower quadrant tenderness. NEUROLOGIC: Alert, awake, and oriented x3. MUSCULOSKELETAL: Moves all extremities. No edema. SKIN: Dry and intact. PSYCH: Calm. LABORATORY DATA: Sodium 140, potassium 3.1, BUN 11, and creatinine 0.88. Estimated GFR greater than 60. IMPRESSION: 1. Obstructive right kidney stone with hydroureteronephrosis. Urine culture negative. Continue empiric Rocephin. Pain management as needed. Urology has been consulted and plans cystoscopy for Sunday. 2. Acute kidney injury. Resolved with IV fluid hydration. 3. Hypertension. Continue Norvasc. 4. Hypokalemia. Potassium 3.1. Replaced. 5. High cholesterol. We will resume statin. 6. Benign prostatic hyperplasia. We will continue Flomax. 7. Incidental finding of mass which is pushing at the head of the pancreas. We will follow up with MD Loepz for further evaluation and workup. 8. History of multiple skin cancer. Aware. 9. Gastrointestinal and deep venous thrombosis prophylaxis. SCDs. The patient is ambulatory. Dictated by ADAM Lorenzo Fidel Barrios MD MY/MODL /[id number]
[2020-04-12] MEDS: LAMOTRIGINE 200 MG PO SCH (21:00)
[2020-04-12] MEDS: TAMSULOSIN HCL 0.4 MG CAP PO SCH (21:04)
[2020-04-12] MEDS: ATORVASTATIN 20 MG TAB PO SCH (21:05)
[2020-04-12] MEDS: TRAZODONE HCL 50 MG TAB PO SCH (22:16)
[2020-04-13] VITALS (8 sets, daily range): BP systolic 121–143; BP diastolic 66–77
[2020-04-13] MEDS: CEFTRIAXONE SOD 1 GM/NS 50 ML 50 ML IV SCH ×2 (01:08→12:42)
[2020-04-13] MEDS: SODIUM CHLORIDE 0.9% 1000ML 1,000 ML IV SCH ×2 (06:04→12:42)
[2020-04-13 06:08] LABS: ANION GAP 16.1 mmol/L (8-16); BLOOD UREA NITROGEN 8 mg/dL (7-26); BUN/CREATININE RATIO 9 (6-25); CARBON DIOXIDE 23 mmol/L (22-29); CHLORIDE 105 mmol/L (98-107); CREATININE, SERUM 0.85 mg/dL (0.72-1.25); EST GLOMERULAR FILTRATION RATE > 60 ML/MIN (60-); GLUCOSE 114 mg/dL (74-118); POTASSIUM 3.1 mmol/L (3.5-5.1); SODIUM 141 mmol/L (136-145)
[2020-04-13] MEDS ORDERED: POTASSIUM CHLORIDE 10MEQ EA PO ONE (09:20)
[2020-04-13] MEDS: AMLODIPINE BESYLATE 10 MG TAB PO SCH (09:42)
--- NOTE | 2020-04-13 20:26 | Progress Note ---
DATE: 04/13/2020 CHIEF COMPLAINT: Right flank pain radiating to right pelvis. SUBJECTIVE: Reported pain overnight x1, currently mild soreness, but otherwise no other complaints. No nausea, vomiting, fever, or chills. No hematuria or stones noted. PHYSICAL EXAMINATION: VITAL SIGNS: Temperature 97.4, pulse is 63, respirations 18, blood pressure 133/77, and pulse ox is 100% on room air. GENERAL: No acute distress. HEENT: Normocephalic and atraumatic. NECK: Supple. LUNGS: Clear to auscultation. CARDIOVASCULAR: Regular rate and rhythm. GI: Soft and nontender. Obese. NEUROLOGIC: Alert, awake, and oriented x3. MUSCULOSKELETAL: Moves all extremities. SKIN: Dry and intact. PSYCH: Calm. LABORATORY DATA: Sodium 141, potassium 3.1, BUN 8, creatinine 0.85, and estimated GFR greater than 60. IMPRESSION AND PLAN: 1. Obstructive right kidney stone with hydroureteronephrosis. Urine culture negative so far. Continue Rocephin empirically. Pain management as needed. Cystoscopy with lithotripsy planned for tomorrow per Urology. 2. Acute kidney injury. Resolved with IV fluids. 3. Hypertension. Continue Norvasc. 4. Hypokalemia. Replace and recheck. 5. High cholesterol. On statin. 6. Benign prostatic hyperplasia. Continue Flomax. 7. Incidental finding of mass in the abdomen pushing at the head of pancreas. We will follow up with MD Lopez for further evaluation next week. 8. History of multiple skin cancers. Aware. 9. Gastrointestinal and deep venous thrombosis prophylaxis. SCDs. PLAN: N.p.o. after midnight for cystoscopy with lithotripsy tomorrow and home thereafter. Dictated by ADAM Lorenzo Fidel Barrios MD MY/MODL /[id number]
[2020-04-13] MEDS: LAMOTRIGINE 200 MG PO SCH (21:00)
[2020-04-13] MEDS: TAMSULOSIN HCL 0.4 MG CAP PO SCH (22:00)
[2020-04-13] MEDS: ATORVASTATIN 20 MG TAB PO SCH (22:00)
[2020-04-13] MEDS: TRAZODONE HCL 50 MG TAB PO SCH (22:00)
[2020-04-14] VITALS (8 sets, daily range): BP systolic 119–152; BP diastolic 69–87
[2020-04-14] MEDS: SODIUM CHLORIDE 0.9% 1000ML 1,000 ML IV SCH ×3 (01:50→20:58)
[2020-04-14] MEDS: CEFTRIAXONE SOD 1 GM/NS 50 ML 50 ML IV SCH ×2 (01:51→12:45)
[2020-04-14 05:45] LABS: BLOOD UREA NITROGEN 8 mg/dL (7-26); BUN/CREATININE RATIO 10 (6-25); CALCIUM 9.2 mg/dL (8.4-10.2); CARBON DIOXIDE 23 mmol/L (22-29); CHLORIDE 106 mmol/L (98-107); CREATININE, SERUM 0.83 mg/dL (0.72-1.25); EST GLOMERULAR FILTRATION RATE > 60 ML/MIN (60-); GLUCOSE 107 mg/dL (74-118); SODIUM 140 mmol/L (136-145)
[2020-04-14] MEDS: MORPHINE SULFATE 2 MG/ML SYR 1ML IV PRN (06:13)
--- NOTE | 2020-04-14 06:45 | NUR ---
Patient resting comfortably. No acute distress noted. Bed-side shift report given to oncoming nurse regarding patient's status.
--- NOTE | 2020-04-14 08:07 | NUR ---
Jeni Jenkins VP RHEUMATOLOGY called on [phone]. Notified of potassium of 3.0, patient NPO. Ordered potassium chloride 40 mEq IV replacement. Order read back and verified. Entered as ordered.
[2020-04-14] MEDS ORDERED: POTASSIUM CHLORIDE 20MEQ/100ML 200 ML IV ONE (08:15)
[2020-04-14] MEDS: AMLODIPINE BESYLATE 10 MG TAB PO SCH (09:14)
--- NOTE | 2020-04-14 13:00 | NUR ---
Patient taken to OR via stretcher, stable condition. First bag of 20 mEq of IV potassium given, pending second bag of 20 mEq when he returns. IV Ceftriaxone sent with patient to OR. 20G right antecubital IV patent.
[2020-04-14] MEDS ORDERED: ACETAMINOPHEN/CODEINE 300MG - 30MG TAB PO PRN (13:45)
--- NOTE | 2020-04-14 15:06 | NUR ---
Received patient back from OR via stretcher. Ambulated back to bed with assist x2. Verbalizing right side pain 04/05. Will give PRN medication as ordered. IV restarted. Regular diet. Call light within reach. Stable condition.
--- NOTE | 2020-04-14 17:15 | NUR ---
Jeni MATERIAL HANDLER LOADER called regarding patient pain unresolved with PRN Tylenol #3. Ordered for one time dose of IV toradol 30mg. Order read back and verified.
[2020-04-14] MEDS ORDERED: KETOROLAC TROMETHAMINE 30 MG/ML VIAL IV ONE (17:30)
[2020-04-14] MEDS ORDERED: PROPOFOL IV EMULSION 10 MG/ML 20 ML VIAL ONE (18:45)
[2020-04-14] MEDS ORDERED: ONDANSETRON HCL INJ 2MG/ML 2ML 2 MG/ML VIAL ONE (18:45)
[2020-04-14] MEDS ORDERED: LIDOCAINE HCL 2% LOCAL INJ 5 ML SDV VIAL INJ ONE (18:45)
[2020-04-14] MEDS ORDERED: SEVOFLURANE INHAL SOLN 250 ML PEN BTL ONE (18:45)
[2020-04-14] MEDS ORDERED: DEXAMETHASONE SOD PHOS INJ 4 MG/ML VIAL ONE (18:45)
[2020-04-14] MEDS ORDERED: LIDOCAINE HCL 2% JELLY 5 ML TUBE ONE (18:45)
--- NOTE | 2020-04-14 19:00 | NUR ---
RECEIVED PATIENT IN BEDSIDE SHIFT REPORT. PATIENT A&OX3. PAIN REPORTED 5/10 TO R SIDE FLANK, BUT PATIENT STATED IT IS MANAGEABLE NOW AND DOES NOT WANT PAIN MEDICATION AT THIS TIME. NS RUNNING AT 100ML/HR TO R AC 20G. NO S&S OF DISTRESS NOTED. BED LOCKED IN LOWEST POSITION, SIDE RAILS UPX2, CALL LIGHT IN REACH.
[2020-04-14] MEDS ORDERED: HYDROCODONE/APAP 5MG-325MG TAB PO PRN (19:45)
[2020-04-14] MEDS: LAMOTRIGINE 200 MG PO SCH (21:00)
--- NOTE | 2020-04-14 21:38 | Progress Note ---
DATE: 04/14/2020 GROUP EXERCISE MANAGER: Dr. Lorenz with Urology. SUBJECTIVE: The patient is going for cystoscopy and lithotripsy. Reported shortness of breath and reaction due to morphine. PHYSICAL EXAMINATION: VITAL SIGNS: Temperature 97.5, pulse is 70, respirations 18, blood pressure 152/87, pulse ox is 98% on room air. GENERAL: No acute distress. LUNGS: Clear. CARDIOVASCULAR: Regular rate and rhythm. GI: Soft. NEUROLOGIC: Alert, awake, and oriented x3. SKIN: Dry. PSYCH: Calm. LABORATORY DATA: Sodium 140, potassium 3.0, BUN is 8, creatinine 0.83, estimated GFR is greater than 60. IMPRESSION AND PLAN: 1. Obstructive right kidney stone with hydroureteronephrosis. Urine culture negative, on Rocephin and pain management as needed. Cystoscopy with lithotripsy today per Urology. 2. Acute kidney injury. Resolved with IV fluids. 3. Hypertension. Continue Norvasc and we will restart losartan. 4. Hypokalemia. Replace and recheck. 5. High cholesterol. On statin. 6. Benign prostatic hypertrophy. On Flomax. 7. Incidental finding of soft tissue mass. Will follow up MD Lopez in 1 to 2 weeks. 8. History of multiple skin cancers. Aware. 9. Gastrointestinal and deep venous thrombosis prophylaxis. No AC due to Urology workup. Plan is cystoscopy with lithotripsy today and anticipate discharge. Dictated by ADAM Lorenzo Fidel Barrios MD MY/MODL /[id number]
[2020-04-14] MEDS ORDERED: FENTANYL CITRATE/PF 100MCG/2 ML INJ ONE (21:44)
[2020-04-14] MEDS ORDERED: MIDAZOLAM HCL 2 MG/2 ML VIAL ONE (21:44)
[2020-04-14] MEDS: ATORVASTATIN 20 MG TAB PO SCH (22:04)
[2020-04-14] MEDS: TAMSULOSIN HCL 0.4 MG CAP PO SCH (22:04)
[2020-04-14] MEDS: TRAZODONE HCL 50 MG TAB PO SCH (22:04)
[2020-04-15] VITALS: BP 116/66
[2020-04-15] MEDS: CEFTRIAXONE SOD 1 GM/NS 50 ML 50 ML IV SCH (00:38)
[2020-04-15] MEDS: SODIUM CHLORIDE 0.9% 1000ML 1,000 ML IV SCH (03:05)
[2020-04-15 04:00] VITALS: BP 144/71
[2020-04-15 07:06] LABS: ANION GAP 16.2 mmol/L (8-16); BLOOD UREA NITROGEN 9 mg/dL (7-26); BUN/CREATININE RATIO 10 (6-25); CALCIUM 9.3 mg/dL (8.4-10.2); CARBON DIOXIDE 21 mmol/L (22-29); CHLORIDE 105 mmol/L (98-107); CREATININE, SERUM 0.87 mg/dL (0.72-1.25); EST GLOMERULAR FILTRATION RATE > 60 ML/MIN (60-); GLUCOSE 102 mg/dL (74-118); POTASSIUM 3.2 mmol/L (3.5-5.1); SODIUM 139 mmol/L (136-145)
--- NOTE | 2020-04-15 07:50 | Operative Report ---
DATE OF PROCEDURE: 04/14/2020 SURGEON: Tre Lorenz MD PREOPERATIVE DIAGNOSIS: Right ureteral calculus. POSTOPERATIVE DIAGNOSIS: Right ureteral calculus. PROCEDURES: 1. Staged right-sided shock wave lithotripsy. 2. Supervision of fluoroscopy. ANESTHESIA: General. ESTIMATED BLOOD LOSS: Minimal. COMPLICATIONS: None. INDICATIONS: Mr. Cueva is a very pleasant 59-year-old male with a symptomatic right ureteral stone. He and I had a long discussion about alternatives, risks, and benefits including doing nothing, shock wave lithotripsy, ureteroscopy, percutaneous nephrostomy, or open surgery. Explained the risks and benefits of stent, the patient declined. He voiced understanding of the options, the alternatives, the risks, and the benefits and elected to proceed. PROCEDURE IN DETAIL: After informed consent was obtained, the patient was taken to the operative suite, placed supine on the operating table, underwent general anesthesia by the Anesthesia Service. Stone was localized in the X, Y, and Z planes. Treatment was performed per treatment report. A total 3000 shocks in maximum power setting of 6 delivered to the stone. Good fragmentation was seen. The patient was awakened from anesthesia and transported to the recovery room in excellent condition. Supervision of fluoroscopy and interpretation retrograde pyelography: I was present for the entire procedure and supervised fluoroscopy. There was no radiologist present. Dosages per treatment report. Tre Lorenz MD ES/MODL /[id number]
[2020-04-15 08:00] VITALS: BP 158/77
[2020-04-15 08:52] VITALS: BP 158/77
[2020-04-15] MEDS ORDERED: LOSARTAN POTASSIUM 100 MG TAB PO SCH (09:00)
[2020-04-15] MEDS: AMLODIPINE BESYLATE 10 MG TAB PO SCH (09:51)
[2020-04-15 12:00] VITALS: BP_SYST 124; BP_SYST 141; BP_DIAS 57; BP_DIAS 91
[2020-04-15] MEDS ORDERED: POTASSIUM CHLORIDE 10MEQ EA PO ONE (13:45)
[2020-04-15] MEDS ORDERED: TYLENOL WITH C1 EACH PO (13:57)
--- NOTE | 2020-04-16 00:55 | Discharge Summary ---
PCP: Dr. Beck at [facility]. FINAL DISCHARGE DIAGNOSES: 1. Obstructive kidney stone with hydroureteronephrosis, status post lithotripsy. 2. Acute kidney injury. 3. Hypertension. 4. Hypokalemia. 5. High cholesterol. 6. Benign prostatic hypertrophy. 7. Incidental finding of soft tissue mass in left abdomen. REPEATER CHIEF: Dr. Lorenz with Urology. PROCEDURES: Cystoscopy with lithotripsy for right obstructive kidney stone. HISTORY: Per HPI. HOSPITAL COURSE: This is a 59-year-old male, who presented with right flank pain, radiating to right pelvic area due to an obstructive right kidney stone with hydroureteronephrosis. CT and KUB were done. He was started on Rocephin empirically and Urology was consulted. He underwent cystoscopy with lithotripsy per Urology yesterday. Pain is controlled with pain medications. He remains afebrile, urine culture negative, vital signs stable, will discharge home to follow up with Urology next week per appointment. He was also noted to have well circumscribed 5.5 x 6.4 x 6.1 cm enhancing mass where each extends inferiorly from the monae hepatis abutting the head of the pancreas, second portion of the duodenum, and inferior vena cava. It is a solitary mass and does not originate from any of the chest and structures. Differential diagnosis includes an enlarged lymph nodes or solid tissue sarcoma. He was advised to follow up for further workup, he reports will be following up at [facility] next week for further workup and evaluation. PHYSICAL EXAMINATION: VITAL SIGNS: Temperature 97.8, pulse is 74, respirations 18, blood pressure 124/57, pulse ox 96% on room air. GENERAL: No acute distress. HEENT: Normocephalic, atraumatic. LUNGS: Clear. CARDIOVASCULAR: Regular rate and rhythm. GI: Soft and nontender. NEUROLOGIC: Alert, awake, and oriented x3. PSYCH: Calm. CONDITION AT DISCHARGE: Improved and stable. DISCHARGE MEDICATIONS: Please see medication reconciliation list. FOLLOWUP: Follow up with PCP, urologist at [facility] in 1 week. TIME SPENT: Total discharge time is 31 minutes. Dictated by ADAM Lorenzo Fidel Barrios MD MY/MODL /[id number] cc: [facility]
== END 2020-04-15 16:17 | disposition home or self-care (01) | DRG 690 ==
LOC: ER 10:47 → ERHOLD 12:48 → EDBD 12:48 → MED/SURG2 14:16
PROVIDERS: ADMIT Internal Medicine; ATTEND Internal Medicine
PROC: BT1D1ZZ Fluoroscopy of Right Kidney, Ureter and Bladder using Low Osmolar Contrast (ICD-10-PCS; 2020-04-14)
PROC: 0TF68ZZ Fragmentation in Right Ureter, Via Natural or Artificial Opening Endoscopic (ICD-10-PCS; principal; 2020-04-14 14:30)
DX: N13.6 Pyonephrosis (principal); N17.9 Acute kidney failure, unspecified; E87.6 Hypokalemia; N40.0 Benign prostatic hyperplasia without lower urinary tract symptoms; K86.9 Disease of pancreas, unspecified; E27.8 Other specified disorders of adrenal gland; E66.9 Obesity, unspecified; Z68.39 Body mass index [BMI] 39.0-39.9, adult; R19.00 Intra-abdominal and pelvic swelling, mass and lump, unspecified site; I10 Essential (primary) hypertension; N39.0 Urinary tract infection, site not specified; E78.00 Pure hypercholesterolemia, unspecified; Z85.828 Personal history of other malignant neoplasm of skin; Z11.59 Encounter for screening for other viral diseases
CPT/HCPCS: 36415; 50590; 74018; 74176; 74177; 80048; 80053; 81001; 83735; 85025; 85610; 85730; 87086; 96361; 99284; J0696; J1100; J1885; J2001; J2250; J2270; J2405; J3010; J3480; J7030; Q9967; U0002